=== PATIENT | male | born 1955 | race Caucasian/White ===

== ENCOUNTER 2017-04-25 21:19 | Emergency (ER) | payer BC ==
[~2017-04-25] VITALS: Ht 170.2 cm; Wt 68.5 kg
[2017-04-25 21:22] VITALS: BP 108/46
== END 2017-04-25 22:44 | disposition home or self-care (01) ==
LOC: ER 21:19
DX: S01.112A Laceration without foreign body of left eyelid and periocular area, initial encounter (principal); W51.XXXA Accidental striking against or bumped into by another person, initial encounter; Y93.73 Activity, racquet and hand sports; Y92.39 Other specified sports and athletic area as the place of occurrence of the external cause; Y99.8 Other external cause status
CPT/HCPCS: 12013; 90471; 90715; 99283; A4606; A6402; J3490; Z7610